=== PATIENT | male | born 1990 | race Caucasian/White ===

== ENCOUNTER 2017-07-14 14:06 | Outpatient (CLI) | payer OTHER ==
--- NOTE | 2017-07-14 19:07 | Diagnostic Imaging Report ---
Indication: Cough Technique: XRAY CHEST 2V Comparison: None Findings: Heart size and mediastinal contours are within normal limits. There is no focal airspace consolidation, pleural effusion or pneumothorax. No acute osseous abnormality seen. Frontal view, a metallic density in the shape of a paperclip clip is noted overlying the heart. This is below the level of the sosa in the midline overlying the spine. This is not definitely seen on lateral view and may be external to the patient. Impression: No focal airspace consolidation. Metallic density in the shape of a paperclip clip is noted overlying the midline lower chest on frontal view. This is not definitely seen on lateral view and may be external to the patient. Correlation with physical exam recommended.
== END 2017-07-14 16:06 | disposition home or self-care (01) ==
LOC: RAD 14:06
DX: R05 Cough (principal); R07.9 Chest pain, unspecified
CPT/HCPCS: 71020